=== PATIENT | female | born 1975 | race Caucasian/White ===

== ENCOUNTER 2019-02-03 23:49 | Emergency (ER) | payer OTHER ==
[~2019-02-03] VITALS: Ht 167.6 cm; Wt 63.5 kg
[2019-02-04] MEDS ORDERED: PENICILLIN V P500 MG PO (01:20)
[2019-02-04] MEDS ORDERED: ACETAMINOPHEN-1 EAC1 PO (01:20)
[2019-02-04] MEDS ORDERED: IBUPROFEN 800800 MG PO (01:20)
[2019-02-04 01:37] VITALS: BP 146/91
== END 2019-02-04 01:38 | disposition home or self-care (01) ==
LOC: M.ERS 23:49
DX: K08.89 Other specified disorders of teeth and supporting structures (principal)